=== PATIENT | female | born 1990 | race Caucasian/White ===

== ENCOUNTER 2019-02-27 15:17 | Emergency (ER) | payer BC, OTHER ==
[2019-02-27 15:54] VITALS: BP 138/84
--- NOTE | 2019-02-27 17:02 | UC ---
Abdominal Pain Female HPI - HPI Summary HPI Summary: 28 yo female with the onset of RUQ /epigastric abd pain about 2 weeks ago Occurs intermittently lasts for hours is severe happens every 2-3 days does not wake her at night today pain started about 12 :30 associated with nausea no vomiting radiates to back last ate at 8AM - History of Current Complaint Chief Complaint: UCGeneralIllness Stated Complaint: NAUSEA, VOMITING, ABD PAIN Time Seen by Provider: 02/27/19 16:41 Hx Obtained From: Patient Hx Last Menstrual Period: 02/22/19 Onset/Duration: Sudden Onset, Lasting Hours Timing: Constant Severity Initially: Moderate Severity Currently: Mild Pain Intensity: 1 Pain Scale Used: 0-10 Numeric Location: Discrete At: RUQ Radiates: Yes Radiates to: Back Character: Cramping, Sharp Aggravating Factor(s): Nothing Alleviating Factor(s): Spontaneous Resolution Associated Signs and Symptoms: Positive: Back Pain, Nausea. Negative: Diaphoresis, Fever, Cough, Chest Pain, Dizzy, Constipation, Blood in Stool, Urinary Symptoms, Decreased Appetite, Vaginal Bleeding, Vaginal Discharge, Vomiting, Diarrhea Female Torso: 1 - pain here Allergies/Adverse Reactions: Allergies Allergy/AdvReac Type Severity Reaction Status Date / Time amoxicillin Allergy Intermediate Hives Verified 02/27/19 15:54 Home Medications: Home Medications Bupropion XL* [Wellbutrin XL *] 150 mg PO DAILY 02/27/19 [History Confirmed ] Venlafaxine EXT RELEASE CAP* [Effexor Xr CAP*] 75 mg PO DAILY 02/27/19 [History Confirmed 02/27/19] clonazePAM TAB(*) [KlonoPIN TAB(*)] 1 mg PO BEDTIME PRN 02/27/19 [History Confirmed 02/27/19] PMH/Surg Hx/FS Hx/Imm Hx Previously Healthy: Yes - Surgical History Surgical History: None - Family History Known Family History: Positive: Hypertension Negative: Cardiac Disease, Diabetes - Social History Alcohol Use: Weekly Substance Use Type: None Smoking Status (MU): Never Smoked Tobacco Review of Systems All Other Systems Reviewed And Are Negative: Yes Constitutional: Positive: Negative Skin: Positive: Negative Eyes: Positive: Negative ENT: Positive: Negative Respiratory: Positive: Negative Cardiovascular: Positive: Negative Gastrointestinal: Positive: Abdominal Pain - RUQ, Nausea Motor: Positive: Negative Neurovascular: Positive: Negative Musculoskeletal: Positive: Negative Neurological: Positive: Negative Psychological: Positive: Negative Physical Exam Triage Information Reviewed: Yes Appearance: Well-Appearing, No Pain Distress, Well-Nourished Vital Signs: Initial Vital Signs Temp 98.1 F 02/27/19 15:49 Pulse 101 02/27/19 15:49 Resp 18 02/27/19 15:49 BP 138/84 02/27/19 15:49 Pulse Ox 100 02/27/19 15:49 Vital Signs Reviewed: Yes Eyes: Positive: Conjunctiva Clear ENT: Positive: Hearing grossly normal. Negative: Nasal congestion, Nasal drainage, Tonsillar swelling, Tonsillar exudate Neck: Positive: Supple, Nontender, No Lymphadenopathy Respiratory: Positive: Lungs clear, Normal breath sounds, No respiratory distress, No accessory muscle use Cardiovascular: Positive: RRR, No Murmur Abdomen Description: Negative: Nontender - RUQ tenderness as well as epigastric tenderness, CVA Tenderness (R), CVA Tenderness (L) Bowel Sounds: Positive: Present Musculoskeletal: Positive: ROM Intact, No Edema Neurological Exam: Normal Neurological: Positive: Alert Psychological Exam: Normal Skin Exam: Normal Diagnostics - Laboratory Lab Results: UA (-), uHCG (-) - Radiology No standard instances Radiology Interpretation Completed By: Radiologist Summary of Radiographic Findings: 1. HEPATIC STEATOSIS. 2. UNREMARKABLE GALLBLADDER WITH NO INTRA OR EXTRAHEPATIC BILIARY DUCTAL DILATATION. Abd Pain Female Course/Dx - Differential Dx/Diagnosis Provider Diagnosis: Abdominal pain, RUQ, Abdominal pain, epigastric Discharge ED - Sign-Out/Discharge Documenting (check all that apply): Patient Departure All imaging exams completed and their final reports reviewed: No Studies - Discharge Plan Condition: Stable Disposition: HOME Prescriptions: Famotidine TAB* [Pepcid 20 MG TAB*] 20 mg PO DAILY #14 tab Ondansetron TAB* [Zofran Tab*] 4 mg PO Q6H PRN #10 tab PRN Reason: Nausea Patient Education Materials: Acute Abdominal Pain (ED) Additional Instructions: see you MD in follow up first available appt recheck for new or worsening symptoms - Billing Disposition and Condition Condition: STABLE Disposition: Home
[2019-02-28 11:19] LABS: ABS Eosinophils 0.1 10^3/ul (0-0.6); ABS Monocytes 0.6 10^3/ul (0-0.8); ABS Neutrophils 5.8 10^3/ul (1.5-7.7); Eosinophil % 0.7 %; Hematocrit 42 % (35-47); Hemoglobin 14.5 g/dL (12.0-16.0); Mean Corpuscular HGB Conc 34 g/dL (31-36); Mean Corpuscular Hemoglobin 29 pg (27-31); Mean Corpuscular Volume 85 fL (80-97); Mean Platelet Volume 8.5 fL (7.4-10.4); Nucleated Red Blood Cells % 0.1; Platelet Count 291 10^3/uL (150-450); Red Blood Count 4.99 10^6 /uL (3.70-4.87); Red Cell Distribution Width 13 % (10-15); White Blood Count 8.5 10^3/uL (3.5-10.8)
[2019-02-28 11:31] LABS: Albumin 4.7 g/dL (3.2-5.2); Calcium 10.7 mg/dL (8.6-10.3); Potassium 4.4 mmol/L (3.5-5.0); Total Bilirubin 0.5 mg/dL (0.2-1.0)
[2019-02-28 11:37] LABS: Albumin/Globulin Ratio 1.8 (1-3); BUN/Creatinine Ratio 15.9 (8-20); EGFR Non-African American 77.7 (>60); Globulin 2.6 g/dL (2-4); Total Protein 7.3 g/dL (6.4-8.9)
== END 2019-02-27 18:08 | disposition home or self-care (01) ==
LOC: UCEAST 15:17
DX: R10.13 Epigastric pain (principal); R10.11 Right upper quadrant pain; K76.0 Fatty (change of) liver, not elsewhere classified; M54.9 Dorsalgia, unspecified; R11.0 Nausea; Z88.0 Allergy status to penicillin
CPT/HCPCS: 36415; 76705; 80053; 81003; 83690; 84702; 85025; 87086; 99202; G0463

== ENCOUNTER 2019-04-11 23:08 | Emergency (ER) | payer BC ==
[2019-04-12 00:49] LABS: ABS Eosinophils 0.1 10^3/ul (0-0.6); ABS Lymphocytes 2.3 10^3/ul (1.0-4.8); ABS Monocytes 0.5 10^3/ul (0-0.8); ABS Neutrophils 3.1 10^3/ul (1.5-7.7); Eosinophil % 2.2 %; Hematocrit 41 % (35-47); Hemoglobin 14.1 g/dL (12.0-16.0); Lymphocyte % 38.3 %; Mean Corpuscular HGB Conc 35 g/dL (31-36); Mean Corpuscular Hemoglobin 30 pg (27-31); Mean Corpuscular Volume 86 fL (80-97); Mean Platelet Volume 7.2 fL (7.4-10.4); Nucleated Red Blood Cells % 0.1; Platelet Count 355 10^3/uL (150-450); Red Blood Count 4.75 10^6 /uL (3.70-4.87); Red Cell Distribution Width 14 % (10-15); White Blood Count 6.1 10^3/uL (3.5-10.8)
--- NOTE | 2019-04-12 01:09 | ED ---
GI/ HPI - HPI Summary HPI Summary: 28 year old F presenting to [facility] complains of episodes of abd pains and passing of blood rectally since earlier today 04/12/2019. Patient reports cramps that radiate to the lower back, diaphoresis, dry mouth, white phlegm-like substance in stool, and feeling of near emesis after the onset of pain. Patient denies constipation and diarrhea. Pt says she has a history of such episodes for years but states that this is the first time she passed blood. She has been seen at [facility] and her PCP who both reported nothing wrong in [place]. A colonoscopy in 2016 revealed no polyps or tears. FHx of celiac disease. The patient rates the pain 6/10 in severity. Symptoms aggravated by nothing. Symptoms alleviated by nothing. - History of Current Complaint Chief Complaint: EDGIBleed Time Seen by Provider: 04/12/19 00:50 Stated Complaint: RECTAL BLEEDING/NAUSEA/DIZZY PER PT Hx Obtained From: Patient Hx Last Menstrual Period: 02/22/19 Onset/Duration: Started Hours Ago, Still Present Current Severity: Moderate Pain Intensity: 6 Location of Pain: Radiates to: - lower back Pain Radiates to: Back - lower Associated Signs and Symptoms: Positive: Blood w/Stool, Abdominal Pain, Other: - diaphoresis, dry mouth, white phlegm-like substance in stool, feelings of near emesis during onset of pain Aggravating Factor(s): Nothing Alleviating Factor(s): Nothing - Allergy/Home Medications Allergies/Adverse Reactions: Allergies Allergy/AdvReac Type Severity Reaction Status Date / Time amoxicillin Allergy Intermediate Hives Verified 04/11/19 23:13 PMH/Surg Hx/FS Hx/Imm Hx Endocrine/Hematology History: Denies: Hx Diabetes, Hx Thyroid Disease Cardiovascular History: Denies: Hx Hypertension Respiratory History: Denies: Hx Asthma, Hx Chronic Obstructive Pulmonary Disease (COPD) GI History: Denies: Hx Ulcer Neurological History: Reports: Hx Headaches - Immunization History Date of Tetanus Vaccine: Unk Date of Influenza Vaccine: None Infectious Disease History: No Infectious Disease History: Denies: Hx Hepatitis, Hx Human Immunodeficiency Virus (HIV), Traveled Outside the [place] in Last 30 Days - Family History Known Family History: Positive: Hypertension, Other - Grandmother has celiac disease Negative: Cardiac Disease, Diabetes - Social History Alcohol Use: Weekly Substance Use Type: Reports: None Smoking Status (MU): Never Smoked Tobacco Review of Systems Positive: Skin Diaphoresis Positive: Other - dry mouth Gastrointestinal: Negative - negative - constipation Positive: Abdominal Pain - cramps that radiate to lower back , Other - white phlegm-like susbtance in stool . Negative: Vomiting - feelings of near emesis furing on set of pain , Diarrhea Positive: other - hematamesis All Other Systems Reviewed And Are Negative: Yes Physical Exam - Summary Physical Exam Summary: Constitutional: Well-developed, Well-nourished, Alert. (-) Distressed Skin: Warm, Dry HENT: Normocephalic; Atraumatic Eyes: Conjunctiva normal Neck: Musculoskeletal ROM normal neck. (-) JVD, (-) Stridor, (-) Tracheal deviation Cardio: Rhythm regular, rate normal, Heart sounds normal; Intact distal pulses; The pedal pulses are 2+ and symmetric. Radial pulses are 2+ and symmetric. (-) Murmur Pulmonary/Chest wall: Effort normal. (-) Respiratory distress, (-) Wheezes, (-) Rales Abd: Soft, (-) tenderness, (-) Distension, (-) Guarding, (-) Rebound Musculoskeletal: (-) Edema Lymph: (-) Cervical adenopathy Neuro: Alert, Oriented x3 Psych: Mood and affect Normal Rectal: blood around rectal vault, positive for bright red blood with good rectal tone Triage Information Reviewed: Yes Vital Signs On Initial Exam: Initial Vitals Temp Pulse Resp BP Pulse Ox 96.9 F 109 20 161/104 98 04/11/19 23:12 04/11/19 23:12 04/11/19 23:12 04/11/19 23:12 04/11/19 23:12 Vital Signs Reviewed: Yes Procedures - Sedation Patient Received Moderate/Deep Sedation with Procedure: No Diagnostics - Vital Signs Vital Signs Temp Pulse Resp BP Pulse Ox 04/11/19 23:12 96.9 F 109 20 161/104 98 - Laboratory Lab Results: Lab Results 04/12/19 Range/Units 00:41 WBC 6.1 (3.5-10.8) 10^3/uL RBC 4.75 (3.70-4.87) 10^6 /uL Hgb 14.1 (12.0-16.0) g/dL Hct 41 (35-47) % MCV 86 (80-97) fL MCH 30 (27-31) pg MCHC 35 (31-36) g/dL RDW 14 (10-15) % Plt Count 355 (150-450) 10^3/uL MPV 7.2 L (7.4-10.4) fL Neut % (Auto) 50.1 % Lymph % (Auto) 38.3 % [place] % (Auto) 8.9 % Eos % (Auto) 2.2 % Baso % (Auto) 0.5 % Absolute Neuts (auto) 3.1 (1.5-7.7) 10^3/ul Absolute Lymphs (auto) 2.3 (1.0-4.8) 10^3/ul Absolute Monos (auto) 0.5 (0-0.8) 10^3/ul Absolute Eos (auto) 0.1 (0-0.6) 10^3/ul Absolute Basos (auto) 0.0 (0-0.2) 10^3/ul Absolute Nucleated RBC 0.0 10^3/ul Nucleated RBC % 0.1 Result Diagrams: 04/12/19 00:41 04/12/19 00:41 Lab Statement: Any lab studies that have been ordered have been reviewed, and results considered in the medical decision making process. GIGU Course/Dx - Course Course Of Treatment: 28 year old F presenting [place] [facility] complains of episodes of abd pains and passing of blood rectally since earlier today 04/12/2019. Pt says she has a history of such episodes for years but states that this is the first time she passed blood. Physical exam findings: Rectal: blood around rectal vault, positive for bright red blood with good rectal tone. Bloodwork results with no significant abnormalities except for L MPV, H Glucose, L AST. In the ED course, on re-evaluation of the patient she stated that she did have bright red blood per rectum once in the past and has had a full evalution for these symptoms at the [facility] years ago, which was negative. She has had no further bloody bowel movements in this ED. She has had no abdominal pain. VSS and labs WNL. HB/HCT are improved from her most recent labs drawn by her PCP in the fall (the patient showed me the results on her phone). She was advised to return to the ED if symptoms should worsen. Patient will be discharged home with a follow up with her PCP . Patient was instructed to return to Emergency Department for new or worsening symptoms. Patient understands and is agreeable to this plan. - Diagnoses Provider Diagnoses: GI bleed Discharge ED - Sign-Out/Discharge Documenting (check all that apply): Patient Departure - discharge - Discharge Plan Condition: Stable Disposition: HOME Prescriptions: Dicyclomine CAP* [Bentyl CAP*] 10 mg PO TID PRN #20 cap PRN Reason: Pain - Moderate Patient Education Materials: Gastrointestinal Bleeding (ED) Print Language: CYPRIOT Referrals: Carlos Max DO [Doctor of Osteopathy] - No Primary Care Phys,NOPCP [Primary Care Provider] - - Billing Disposition and Condition Condition: STABLE Disposition: Home - Attestation Statements Document Initiated by Nadiya: Yes Documenting Scribe: Jamie Duke Provider For Whom Nadiya is Documenting (Include Credential): Natalia Ovalle MD Scribe Attestation: IJamie, scribed for Natalia Nowak MD on 04/12/19 at 1938. Scribe Documentation Reviewed: Yes Provider Attestation: The documentation as recorded by the Jamie vizcaino accurately reflects the service I personally performed and the decisions made by me, Natalia Nowak MD Status of Scribe Document: Viewed
[2019-04-12 01:14] LABS: Albumin 4.4 g/dL (3.2-5.2); Albumin/Globulin Ratio 1.6 (1-3); EGFR African American 92.8 (>60); EGFR Non-African American 76.7 (>60); Globulin 2.8 g/dL (2-4); Potassium 3.8 mmol/L (3.5-5.0); Total Bilirubin 0.3 mg/dL (0.2-1.0); Total Protein 7.2 g/dL (6.4-8.9)
[2019-04-12 02:36] VITALS: BP 130/79
== END 2019-04-12 02:36 | disposition home or self-care (01) ==
LOC: ED 23:08
DX: K92.2 Gastrointestinal hemorrhage, unspecified (principal); R10.9 Unspecified abdominal pain; K92.1 Melena; M54.5 Low back pain; R51 Headache
CPT/HCPCS: 36415; 80053; 85025; 99283